=== PATIENT | female | born 2000 | race Two or more races ===

== ENCOUNTER 2023-01-14 16:39 | Emergency (ER) | payer OTHER ==
[~2023-01-14] VITALS: Ht 154.9 cm; Wt 85.0 kg
[2023-01-14 17:00] VITALS: BP 111/77
[2023-01-14 18:54] LABS: Basophils # (auto) 0 10 ^3/uL (0-0.2); Basophils % (auto) 0.1 % (0.0-2.0); Eosinophils # (auto) 0.1 10 ^3/uL (0-0.8); Eosinophils % (auto) 0.6 % (0.0-7.0); Hematocrit 36.1 % (36.0-46.0); Hemoglobin 12.7 g/dL (12.2-16.2); Lymphocytes # (auto) 1.6 10 ^3/uL (0.4-5.4); Lymphocytes % (auto) 13.8 % (10.0-50.0); Mean Corpuscular Hgb Conc. 35.2 g/dL (32.0-36.0); Mean Corpuscular Volume 87.9 fL (80.0-100.0); Monocytes # (auto) 0.7 10 ^3/uL (0-1.3); Monocytes % (auto) 5.7 % (0.0-12.0); Neutrophils # (auto) 9.5 10 ^3/uL (1.6-8.6); Neutrophils % (auto) 79.8 % (37.0-80.0); Red Blood Cells 4.11 10^6/uL (4.0-5.20); Red Cell Distribution Width 13.1 % (11.8-14.3); White Blood Cell 11.9 10^3/uL (4.4-10.8)
[2023-01-14 19:03] LABS: Potassium 3.7 mmol/L (3.5-5.1)
[2023-01-14 19:05] LABS: Bilirubin, Total 0.2 mg/dL (0.2-1.0); Total Protein 6.3 g/dL (6.4-8.2)
== END 2023-01-14 23:00 | disposition home or self-care (01) ==
LOC: ER 16:39
DX: O26.891 Other specified pregnancy related conditions, first trimester (principal); R55 Syncope and collapse; R10.2 Pelvic and perineal pain; E16.2 Hypoglycemia, unspecified; Z3A.14 14 weeks gestation of pregnancy
CPT/HCPCS: 36415; 76805; 80053; 84702; 85025